=== PATIENT | male | born 1995 | race Hispanic/Latino ===

== ENCOUNTER 2018-04-15 10:51 | Emergency (ER) | payer OTHER ==
[2018-04-15 11:13] VITALS: BP 118/69; RESP 16; TEMP 98.2; O2SAT 99
--- NOTE | 2018-04-15 12:43 | ED PDOC ---
HPI: Back Time Seen by Provider: 04/15/18 12:20 Chief Complaint (Nursing): Back Pain Chief Complaint (Provider): Right sided back pain since yesterday History Per: Patient History/Exam Limitations: no limitations Onset/Duration Of Symptoms: Days (1) Current Symptoms Are (Timing): Still Present Quality Of Discomfort: Sharp (With movememt ), Dull Additional Complaint(s): 22 yo male with no medical problems presents for evaluation of right middle back pain x 1 days. Pt states he feels like it is muscular but there is external pain when he takes a deep breath. Pt took tylenol this morning that did not help. Pt denies SOB. No chest pain. No recnt travel. No family history of blood clotting abnormalities. Past Medical History Reviewed: Historical Data, Nursing Documentation, Vital Signs Vital Signs: Last Vital Signs Temp 98.2 F 04/15/18 11:11 Pulse 91 H 04/15/18 11:11 Resp 16 04/15/18 11:11 BP 118/69 04/15/18 11:11 Pulse Ox 99 04/15/18 11:11 - Medical History PMH: No Chronic Diseases - Surgical History Surgical History: No Surg Hx - Family History Family History: States: No Known Family Hx - Living Arrangements Living Arrangements: With Family - Social History Current smoker - smoking cessation education provided: No Alcohol: Occasional Drugs: Denies - Home Medications Home Medications: Ambulatory Orders Medication Instructions Recorded Amoxicillin/Clavulanate [Augmentin 1 tab PO BID #20 tab 03/27/16 875 MG-125 MG] Ibuprofen [Motrin] 600 mg PO TID PRN #30 tab 03/27/16 Cyclobenzaprine [Cyclobenzaprine 10 mg PO Q8H PRN #12 tab 04/15/18 HCl] Ibuprofen [Motrin Tab] 800 mg PO Q6H PRN #20 tab 04/15/18 - Allergies Allergies/Adverse Reactions: Allergies Allergy/AdvReac Type Severity Reaction Status Date / Time No Known Allergies Allergy Verified 03/27/16 10:30 Review of Systems ROS Statement: Except As Marked, All Systems Reviewed And Found Negative Constitutional: Negative for: Fever, Chills Musculoskeletal: Positive for: Back Pain Physical Exam - Reviewed Nursing Documentation Reviewed: Yes Vital Signs Reviewed: Yes - Physical Exam Appears: Positive for: Well, Non-toxic, No Acute Distress Head Exam: Positive for: ATRAUMATIC, NORMAL INSPECTION, NORMOCEPHALIC Skin: Positive for: Normal Color, Warm, DRY Eye Exam: Positive for: Normal appearance ENT: Positive for: Normal ENT Inspection Neck: Positive for: Normal, Painless ROM Cardiovascular/Chest: Positive for: Regular Rate, Rhythm Respiratory: Positive for: Normal Breath Sounds. Negative for: Accessory Muscle Use, Respiratory Distress Back: Positive for: Normal Inspection, Other ((+) right sided paraspinal tendernss ). Negative for: L CVA Tenderness, R CVA Tenderness, Vertebral Tende rness Extremity: Positive for: Normal ROM Neurologic/Psych: Positive for: Alert, Oriented - ECG O2 Sat by Pulse Oximetry: 99 Medical Decision Making Medical Decision Making: CXR normal. Urine normal. Disposition - Clinical Impression Clinical Impression: Back pain - Patient ED Disposition Is Patient to be Admitted: No Counseled Patient/Family Regarding: Diagnosis, Need For Followup, Rx Given - Disposition Referrals: [facility] [Outside] Disposition: Routine/Home Disposition Time: 14:11 Condition: GOOD Prescriptions: Cyclobenzaprine [Cyclobenzaprine HCl] 10 mg PO Q8H PRN #12 tab PRN Reason: Muscle Spasm Ibuprofen [Motrin Tab] 800 mg PO Q6H PRN #20 tab PRN Reason: Pain Instructions: Upper Back Pain Forms: [employer] (Korean)
--- NOTE | 2018-04-15 13:59 | RAD ---
Date of service: 04/15/2018 HISTORY: right middle back pain COMPARISON: No prior. TECHNIQUE: Chest PA and lateral FINDINGS: LUNGS: No active pulmonary disease. PLEURA: No significant pleural effusion identified. No pneumothorax apparent. CARDIOVASCULAR: Normal. OSSEOUS STRUCTURES: No significant abnormalities. VISUALIZED UPPER ABDOMEN: Normal. OTHER FINDINGS: None. IMPRESSION: No active disease.
[2018-04-15 14:13] VITALS: PULSE 84
== END 2018-04-15 14:27 | disposition home or self-care (01) ==
LOC: H.ER 10:51
DX: M54.9 Dorsalgia, unspecified (principal)